=== PATIENT | female | born 2000 | race Caucasian/White ===

== ENCOUNTER 2023-02-22 22:32 | Emergency (ER) | payer OTHER ==
[~2023-02-22] VITALS: Ht 162.6 cm; Wt 66.0 kg
[2023-02-22 22:49] VITALS: O2SAT 100
[2023-02-23] MEDS ORDERED: KETOROLAC 60MG/2ML VIAL IM STA (01:50)
[2023-02-23] MEDS ORDERED: METOCLOPRAMIDE HCL 10MG/2ML VIAL IM ONE (02:00)
[2023-02-23 02:05] VITALS: BP 142/84
[2023-02-23] MEDS ORDERED: NAPR-681 PO (03:23)
[2023-02-23] MEDS ORDERED: ONDA4TAB50 PO (03:23)
[2023-02-23] MEDS ORDERED: ACETAMINOPHEN 325MG TABLET PO STA (04:23)
[2023-02-23 06:28] VITALS: PULSE 90; RESP 18; TEMP 98.3
[2023-02-23 09:15] LABS: CLARITY URINE BLOODY (CLEAR); COLOR URINE RED (YELLOW); GLUCOSE URINE TRACE (NEGATIVE); PH URINE 6.5 (4.5-8.0); PROTEIN URINE 2+ (NEGATIVE); SPECIFIC GRAVITY URINE 1.025 (1.005-1.030)
[2023-02-23 09:16] LABS: KETONES URINE TRACE (NEGATIVE); LEUKOCYTE ESTERASE URINE 2+ (NEGATIVE); NITRITE URINE POSITIVE (NEGATIVE); OCCULT BLOOD URINE 1+ (NEGATIVE)
[2023-02-23 09:24] LABS: SQUAMOUS EPITHELIAL CELL URINE 2+ /lpf (RARE/1+)
[2023-02-23 09:25] LABS: BACTERIA URINE 3+; WBC URINE 50-100 /hpf (0-2); YEAST URINE NONE SEEN
== END 2023-02-23 06:29 | disposition home or self-care (01) ==
LOC: ER 22:32
DX: R51.9 Headache, unspecified (principal); R53.1 Weakness; R42 Dizziness and giddiness; Z20.822 Contact with and (suspected) exposure to COVID-19
CPT/HCPCS: 81025; 99285; 81003; 87086; 70450; 96372; 87426; J1885; J2765; C9803; Z7610